=== PATIENT | male | born 1990 | race Caucasian/White ===

== ENCOUNTER → 2017-07-21 | Outpatient (REF) | payer OTHER ==
[2017-07-21 12:17] LABS: % NORMAL FORMS < 4 % (>=4); IMMOTILITY 62 %; NON PROGRESSIVE MOTILITY (c) 29 %; PROGRESSIVE MOTILITY (a) 9 % (>=32); SPERM# 35.3 M/Ejac (>=39); TOTAL FUNCTIONAL 0.2 M/Ejac.; TOTAL MOTILITY 38 % (>=40); TOTAL PROGRESSIVE SPERM 3.1 M/Ejac.
== END ==
LOC: M LAB REF 11:48
PROVIDERS: ATTEND Obstetrics & Gynecology Reproductive Endocrinology
DX: N46.9 Male infertility, unspecified (principal)